=== PATIENT | male | born 1945 | race Caucasian/White ===

== ENCOUNTER 2018-11-03 07:23 | Observation (INO) | payer MEDICARE ==
[2018-11-02 09:51] LABS: BASOPHILS # (AUTO) 0.1 (0.0-0.1); EOSINOPHILS # (AUTO) 0.2 (0.0-0.4); EOSINOPHILS % 2.9 % (0.0-6.0); HEMATOCRIT 45.2 % (38.2-49.6); HEMOGLOBIN 15.4 g/dL (14.0-18.0); LYMPHOCYTES # (AUTO) 1.1 (1.0-3.2); LYMPHOCYTES % 21.6 % (18.0-39.1); MEAN CORPUSCULAR HGB CONC 34.1 g/dL (31-35); MEAN CORPUSCULAR VOLUME 91.1 fL (81-99); MONOCYTES # (AUTO) 0.5 (0.2-0.8); MONOCYTES % 9.8 % (4.4-11.3); NEUTROPHILS # (AUTO) 3.2 (2.1-6.9); NEUTROPHILS % 62.7 % (38.7-80.0); PLATELET COUNT 214 x10e3/uL (140-360); RED BLOOD COUNT 4.96 x10e6/uL (4.3-5.7); RED CELL DISTRIBUTION WIDTH 12.2 % (11.7-14.4)
[2018-11-02 09:58] LABS: ANION GAP 13.3 mmol/L (8-16); BLOOD UREA NITROGEN 21 mg/dL (7-26); BUN/CREATININE RATIO 24 (6-25); CALCIUM 9.3 mg/dL (8.4-10.2); CARBON DIOXIDE 26 mmol/L (22-29); CHLORIDE 105 mmol/L (98-107); CREATININE, SERUM 0.88 mg/dL (0.72-1.25); EST GLOMERULAR FILTRATION RATE > 60 ML/MIN (60-); GLUCOSE 87 mg/dL (74-118); POTASSIUM 4.3 mmol/L (3.5-5.1); SODIUM 140 mmol/L (136-145)
[2018-11-02 09:59] LABS: INR 0.93
[2018-11-02 10:00] LABS: PARTIAL THROMBOPLASTIN TIME 27.8 seconds (23.8-35.5)
--- NOTE | 2018-11-02 10:37 | Diagnostic Imaging Report ---
EXAMINATION: CHEST 2 VIEWS INDICATION: Preoperative. COMPARISON: None. FINDINGS: TUBES and LINES: None. LUNGS: The lungs are hyperinflated. No focal consolidation or pulmonary edema. The right lung apex is partially excluded from the [id number]. Biapical pleural-parenchymal opacity, suggestive of prior granulomatous disease. PLEURA: No pleural effusion or pneumothorax. HEART AND MEDIASTINUM: The cardiomediastinal silhouette is unremarkable. BONES AND SOFT TISSUES: No acute osseous abnormality. UPPER ABDOMEN: No free air under the diaphragm. IMPRESSION: Hyperinflated lungs, which may represent emphysema. No acute radiographic abnormality. Signed by: Sonal Martinez MD on 11/02/2018 10:34 AM
[~2018-11-03] VITALS: Ht 193 cm; Wt 80.4 kg
[~2018-11-03 07:23] MED LIST: BACITRACIN 50,000 UNIT VIAL ONE; BUPIVACAINE 0.5%/EPI 30 ML SDV INJ ONE; CHONDROITIN PO; GLUCOSAMINE1000 MG PO; IBUPROFEN 600 MG; THROMBIN FOR SOLN 5,000 UNIT VIAL ONE
--- OUTSIDE RECORDS SUMMARY | 2018-11-03 07:28 | XMS REPORT ---
Author Author [facility] Address Unknown Phone Unavailable Care Team Providers Care Inventory Control Supervisor Name Role Phone NUNO CARLOS Unavailable Unavailable Problems This patient has no known problems. Allergies, Adverse Reactions, Alerts This patient has no known allergies or adverse reactions. Medications This patient has no known medications. Results Test Description Test Time Test Comments Text Results Atomic Results Result Comments CHEST 2 VIEWS 2018-11-02 10:31:00 [place] [address] Patient Name: KENNY CHILEL MR #: [id number] : 1945 Age/Sex: 73/M Req #: [id number] [facility] Physician: Ordered by: NUNO CARLOS MD Report #: [id number] Location: OR Room/Bed: Procedure: [id number] DX/CHEST 2 VIEWS Exam Date: 11/02/18 Exam Time: 926 REPORT STATUS: Signed EXAMINATION: CHEST 2 VIEWS INDICATION: Preoperative. COMPARISON: None. FINDINGS: TUBES and LINES: None. LUNGS: The lungs are hyperinflated. No focal consolidation or pulmonary edema. The right lung apex is partially excluded from the [id number]-bq-[id number]. Biapical pleural-parenchymal opacity, suggestive of prior granulomatous disease. PLEURA: No pleural effusion or pneumothorax. HEART AND MEDIASTINUM: The cardiomediastinal silhouette is unremarkable. BONES AND SOFT TISSUES: No acute osseous abnormality. UPPER ABDOMEN: No free air under the diaphragm. IMPRESSION: Hyperinflated lungs, which may represent emphysema. No acute radiographic abnormality. Signed by: Nisa Martinez MD on 11/02/2018 10:34 AM Dictated By: NISA MARTINEZ MD 1034 Transcribed By: TAMAR on 11/02/18 1034 COPY TO: NUNO CARLOS MD
[2018-11-03] MEDS ORDERED: IBUPROFEN 800MG/ 250ML 250 ML IV ONE (07:30)
[2018-11-03] MEDS ORDERED: ACETAMINOPHEN 1000 MG/100 ML 100 ML IV ONE (07:30)
[2018-11-03] MEDS ORDERED: LIDOCAINE HCL (LTA) 4 ML SOLN ONE (07:30)
[2018-11-03] MEDS ORDERED: CEFAZOLIN SOD 1 GM/NS 50ML 100 ML IV ONE (07:51)
[2018-11-03] MEDS ORDERED: ONDANSETRON HCL INJ 2MG/ML 2ML 2 MG/ML VIAL IV PRN (10:45)
[2018-11-03] MEDS ORDERED: MORPHINE SULFATE 5 MG/ML VIAL IM PRN (10:45)
[2018-11-03] MEDS ORDERED: ACETAMINOPHEN 325 MG TAB PO PRN (10:45)
[2018-11-03] MEDS ORDERED: HYDROMORPHONE 2MG/ML 2 MG/ML ML IV PRN (10:45)
[2018-11-03] MEDS ORDERED: PROMETHAZINE HCL (IM) 25 MG/ML VIAL IM PRN (10:45)
[2018-11-03] MEDS ORDERED: ZOLPIDEM TARTRATE 5 MG TAB PO PRN (10:45)
[2018-11-03] MEDS ORDERED: OXYCODONE/ACETAMINOPHEN 5-325 1 EACH TABLET PO PRN (10:45)
[2018-11-03] MEDS ORDERED: CARISOPRODOL 350 MG TAB PO PRN (10:45)
[2018-11-03] MEDS ORDERED: MAGNESIUM/ALUMINUM/SIMETHICONE 30 ML UDC PO PRN (10:45)
[2018-11-03] MEDS ORDERED: FENTANYL CITRATE/PF 100MCG/2 ML INJ ONE ×2 (11:27→18:40)
--- NOTE | 2018-11-03 11:40 | Operative Report ---
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 POSTOPERATIVE DIAGNOSIS: C5-6 spondylosis and spinal stenosis with radiculopathy and with dysphagia due to large anterior osteophyte, M50.122. PROCEDURES: 1. C5-6 anterior cervical diskectomy and resection of large anterior osteophyte and allograft fusion, 32729. 2. Preparation of MTF corticocancellous allograft, 52124. 3. C5-6 anterior arthrodesis with Synthes ZPN plate, 65635. ANESTHESIA: General. INDICATIONS: The patient is a 73-year-old man, who presents with severe cervical spinal stenosis at C5-6 due to cervical spondylosis. In addition, he has a very large anterior bony osteophyte at C5-6, which compresses the esophagus and produces dysphagia. The patient was taken to the operating room for anterior cervical decompression and fusion and resection of the anterior osteophyte in the process. PROCEDURE IN DETAIL: After induction of general anesthesia, the patient was placed on the operating table in a supine position. The right side of neck was prepped and draped in sterile fashion. The fluoroscopic C-arm was positioned in cross-table lateral orientation. A transverse incision was created on the right side of neck superimposed on the C5-6 disk space as determined by fluoroscopy. The platysma was divided in line with the incision. A subplatysmal dissection was carried out and avascular plane of dissection was developed medial to the sternocleidomastoid muscle and was followed medial to the carotid sheath to the anterior border of the cervical spine, the deep cervical fascia was opened, the esophagus was retracted to the left, the very large anterior osteophyte came into view primarily centered overlying the C5 and C6 vertebral bodies, but extending all the way to the C4 vertebral body. The anterior longitudinal ligament was resected. Large portions of the osteophyte were first resected with the [place] rongeur. The operating microscope was brought in. A high-speed drill equipped with a 5 mm cutting bur was used to drill the bony osteophyte over the vertebral bodies of C6, C5, and C4. However, a shell of bone was left overlying the C4-5 disk space in order to avoid having to fuse that disk space as well. Attention was then directed to the C5-6 disk space. [place] posts were inserted into C5 and C6 vertebral body and the [place] distractor was used to distract the degenerated disk space. The contents of the disks were evacuated with curettes and pituitary rongeurs. A 5 mm cutting bur was used to simultaneously drill the inferior and superior endplates until the disk space height was re-established. The posterior osteophytes at this level were then meticulously drilled with a 2 mm cutting bur on a high-speed drill until they were completely removed. The posterior annulus of the disk, chronically herniated disk material, and the posterior longitudinal ligament were resected layer by layer until the dura was fully exposed and decompressed and medial aspects of the uncinate processes were resected bilaterally to further expose and decompress the origins of the corresponding C6 nerve roots. After satisfactory decompression had been achieved, the endplates were prepared for fusion. The disk space was sized and found to be 9 mm in height. A piece of MTF corticocancellous allograft measuring 9 mm in thickness was selected and prepared in saline and loaded onto a Synthes ZPN plate. The construct was then inserted into the C5-6 disk space under distraction and fluoroscopic guidance. It was tamped in place until the anterior margin of the plate was flushed with the anterior margin of the vertebral bodies. The plate was then screwed to the endplates of C5 and C6 with two pairs of 16 mm screws, all four screws were locked and excellent construct was obtained. The wound was copiously irrigated with bacitracin solution. Meticulous hemostasis was secured. Retractor was removed. The platysma was closed with 3-0 Vicryl sutures. The skin was closed with 4-0 Monocryl sutures in subcuticular fashion. Steri-Strips and dressing were applied. The patient was awakened, extubated, and taken to postanesthesia care unit in stable condition. No intraoperative complications were encountered. ESTIMATED BLOOD LOSS: 20 mL. Ari Huang MD PP/DORINA /[id number]
[2018-11-03] MEDS ORDERED: MORPHINE SULFATE INJ 4 MG/ML INJ 1ML IM PRN (12:00)
[2018-11-03 12:06] VITALS: BP 167/92
[2018-11-03] MEDS: LACTATED RINGER'S 1,000 ML IV SCH ×2 (12:15→21:09)
[2018-11-03 13:26] VITALS: BP 167/92
[2018-11-03 13:41] VITALS: BP 167/92
[2018-11-03] MEDS: CEFAZOLIN SOD 1 GM/NS 50ML 50 ML IV SCH ×2 (14:26→21:09)
[2018-11-03 15:21] VITALS: BP 138/81
[2018-11-03] MEDS ORDERED: LIDOCAINE HCL 2% JELLY 5 ML TUBE ONE (16:04)
[2018-11-03] MEDS ORDERED: GLYCOPYRROLATE INJ 1MG/ 5 ML SYR ONE (16:04)
[2018-11-03] MEDS ORDERED: LIDOCAINE HCL 2% LOCAL INJ 5 ML SDV VIAL INJ ONE (16:04)
[2018-11-03] MEDS ORDERED: ROCURONIUM BROMIDE 10 MG/ML 5ML VIAL ONE (16:04)
[2018-11-03] MEDS ORDERED: DEXAMETHASONE SOD PHOS INJ 4 MG/ML VIAL ONE (16:04)
[2018-11-03] MEDS ORDERED: NEOSTIGMINE 5 MG/5ML SYR ONE (16:04)
[2018-11-03] MEDS ORDERED: SEVOFLURANE INHAL SOLN 250 ML PEN BTL ONE (16:04)
[2018-11-03] MEDS ORDERED: PROPOFOL IV EMULSION 10 MG/ML 20 ML VIAL ONE (16:04)
[2018-11-03] MEDS ORDERED: ONDANSETRON HCL INJ 2MG/ML 2ML 2 MG/ML VIAL ONE (16:04)
[2018-11-03] MEDS ORDERED: GLUCOSAMINE SULFATE 1500 MG PO SCH (17:00)
[2018-11-03] MEDS ORDERED: CHONDROITIN PO SCH (17:00)
[2018-11-03] MEDS ORDERED: MIDAZOLAM HCL 2 MG/2 ML VIAL ONE (18:40)
[2018-11-03 20:00] VITALS: BP 163/83
[2018-11-04] VITALS: BP 118/66
[2018-11-04 04:00] VITALS: BP 130/64
[2018-11-04] MEDS: LACTATED RINGER'S 1,000 ML IV SCH (05:06)
[2018-11-04] MEDS: CEFAZOLIN SOD 1 GM/NS 50ML 50 ML IV SCH (05:06)
--- NOTE | 2018-11-04 07:11 | NUR ---
REPORT GIVEN TO DAY NURSE. PATIENT IS RESTING COMFORTABLY IN BED. BED IS IN LOWEST POSITION AND CALL LIGHT IS WITHIN REACH.
--- NOTE | 2018-11-04 07:52 | Diagnostic Imaging Report ---
EXAM: Cervical spine radiographs-2 views INDICATION: Postoperative. COMPARISON: None FINDINGS: C1-C7 is visualized on the lateral view. There is mild anterolisthesis of C2 on C3 and C3 on C4. There are extensive multilevel cervical degenerative disc changes with joint space narrowing and bony osteophyte formation, most pronounced at C4-C5 and C5-C6. Extensive facet degenerative changes. There are postsurgical changes related to C5-C6 anterior fusion with plate and screw construct and intervertebral spacer placement. Hardware appears grossly intact. There is prevertebral soft tissue edema and air, consistent with recent surgery. IMPRESSION: Postsurgical findings status post C5-C6 fusion as above. Extensive degenerative changes of the cervical spine. Signed by: Dr. Emory Worley MD on 11/04/2018 7:49 AM
[2018-11-04] MEDS ORDERED: NORCO 7.5-3251 EACH PO (07:59)
[2018-11-04 08:13] VITALS: BP 131/75
[2018-11-04 08:23] VITALS: BP 131/75
--- NOTE | 2018-11-04 08:32 | NUR ---
Discharge instructions, follow up appointment with Dr Keith discussed, printed discharge instructions and post op surgical care education and instructions given to patient. Pt is AAOx4 and he verbalized all instructions given. Pt is waiting for his daughter at this time.
== END 2018-11-04 09:23 | disposition home or self-care (01) ==
LOC: OR 07:23 → PACU V 10:46 → IMCU 11:50
PROVIDERS: ADMIT Neurological Surgery; ATTEND Neurological Surgery
DX: M50.122 Cervical disc disorder at C5-C6 level with radiculopathy (principal); R13.10 Dysphagia, unspecified; Z01.810 Encounter for preprocedural cardiovascular examination; Z01.812 Encounter for preprocedural laboratory examination; Z01.811 Encounter for preprocedural respiratory examination
CPT/HCPCS: 20931; 22551; 22845; 36415; 71046; 72040; 80048; 85025; 85610; 85730; 86850; 86900; 88304; 88311; 93005; C1713 ×2; C9359; G0378 ×2; J0131; J0690 ×2; J1100; J2001 ×2; J2250; J2405; J2704; J3010; J3490; J7121 ×2; 77003

== ENCOUNTER → 2018-12-01 | Outpatient (CLI) | payer MEDICARE ==
[~2018-12-01] MED LIST changes: -BACITRACIN 50,000 UNIT VIAL ONE; -BUPIVACAINE 0.5%/EPI 30 ML SDV INJ ONE; +NORCO 7.5-3251 EACH PO; -THROMBIN FOR SOLN 5,000 UNIT VIAL ONE
--- NOTE | 2018-12-01 15:13 | Diagnostic Imaging Report ---
EXAM: Cervical spine radiographs-2 views INDICATION: Status post cervical spine fusion COMPARISON: None FINDINGS: 4 views of the cervical spine. There is mild anterolisthesis of C2 on C3 and C3 on C4. There are extensive multilevel cervical degenerative disc changes with joint space narrowing and bony osteophyte formation, most pronounced at C4-C5 and C5-C6. Extensive facet degenerative changes. Unchanged alignment status post C5-C6 anterior fusion with plate and screw construct and intervertebral spacer placement. Hardware appears grossly intact. Prevertebral soft tissue thickening and subcutaneous emphysema have decreased compared to the prior radiograph of 11/04/2018. IMPRESSION: Unchanged alignment status post C5-6 anterior fusion with interval decrease in postoperative prevertebral soft tissue swelling and soft tissue emphysema. Signed by: Sonal Martinez MD on 12/01/2018 3:07 PM
== END ==
LOC: RAD 13:50
PROVIDERS: ATTEND Neurological Surgery
DX: M50.20 Other cervical disc displacement, unspecified cervical region (principal); M43.22 Fusion of spine, cervical region
CPT/HCPCS: 72050

== ENCOUNTER 2021-09-16 11:04 | Observation (INO) | payer MEDICARE ==
[2021-09-12 14:47] LABS: BASOPHILS # (AUTO) 0.1 (0.0-0.1); BASOPHILS % 1.9 % (0.0-1.0); EOSINOPHILS # (AUTO) 0.2 (0.0-0.4); EOSINOPHILS % 4.5 % (0.0-6.0); HEMATOCRIT 45.8 % (38.2-49.6); HEMOGLOBIN 15.4 g/dL (14.0-18.0); LYMPHOCYTES # (AUTO) 1.6 (1.0-3.2); LYMPHOCYTES % 29.9 % (18.0-39.1); MEAN CORPUSCULAR HEMOGLOBIN 31.1 pg (28-32); MEAN CORPUSCULAR HGB CONC 33.6 g/dL (31-35); MEAN CORPUSCULAR VOLUME 92.5 fL (81-99); MONOCYTES # (AUTO) 0.5 (0.2-0.8); MONOCYTES % 9.5 % (4.4-11.3); NEUTROPHILS # (AUTO) 2.8 (2.1-6.9); NEUTROPHILS % 53.8 % (38.7-80.0); PLATELET COUNT 245 x10e3/uL (140-360); RED BLOOD COUNT 4.95 x10e6/uL (4.3-5.7); RED CELL DISTRIBUTION WIDTH 12.2 % (11.7-14.4)
[2021-09-12 14:55] LABS: CLARITY,URINE CLEAR (CLEAR); COLOR,URINE YELLOW (YELLOW); LEUKOCYTE ESTERASE ,URINE NEGATIVE (NEGATIVE); NITRITE,URINE NEGATIVE (NEGATIVE)
[2021-09-12 14:56] LABS: KETONES,URINE NEGATIVE (NEGATIVE); PROTEIN,URINE DIPSTICK NEGATIVE (NEGATIVE); URINE UROBILINOGEN 0.2 mg/dL (0.2 - 1)
[2021-09-12 15:09] LABS: ANION GAP 12.4 mmol/L (8-16); CALCIUM 9.1 mg/dL (8.4-10.2); CREATININE, SERUM 0.92 mg/dL (0.72-1.25); POTASSIUM 4.4 mmol/L (3.5-5.1)
[~2021-09-16] VITALS: Ht 185.4 cm; Wt 81.6 kg
[~2021-09-16 11:04] MED LIST changes: +ROPIVACAINE 246.25 MG, EPINEPHRINE HCL 1:1000 1ML 0.5 MG, CLONIDINE HCL 0.08 MG, KETORO... INJ ONE; +ULTRAM 50MG50 MG PO
[2021-09-16] MEDS ORDERED: DEXAMETHASONE SOD PHOS 10 MG/1 ML VIAL ONE (11:28)
[2021-09-16] MEDS ORDERED: CELECOXIB 200 MG CAP ONE (11:28)
[2021-09-16] MEDS ORDERED: GABAPENTIN 300 MG CAP ONE (11:29)
[2021-09-16] MEDS ORDERED: ROPIVACAINE 0.5% 5 MG/ML 30 ML SDV ONE (11:45)
[2021-09-16] MEDS ORDERED: SODIUM CHLORIDE 0.9% 500ML 500 ML ONE (12:13)
[2021-09-16] MEDS ORDERED: Vancomycin IV 1,000 MG ONE (12:13)
[2021-09-16] MEDS ORDERED: TRANEXAMIC ACID 20 ML ONE (12:13)
[2021-09-16] MEDS ORDERED: LIDOCAINE HCL 2% LOCAL INJ 5 ML SDV VIAL INJ ONE (13:04)
[2021-09-16] MEDS ORDERED: SEVOFLURANE INHAL SOLN 250 ML PEN BTL ONE (13:04)
[2021-09-16] MEDS ORDERED: PROPOFOL IV EMULSION 10 MG/ML 20 ML VIAL ONE (13:04)
[2021-09-16] MEDS ORDERED: POVIDONE IODINE 0.05% 0.05 % ML PO ONE (13:04)
[2021-09-16] MEDS ORDERED: ONDANSETRON HCL INJ 2MG/ML 2ML 2 MG/ML VIAL ONE (13:04)
[2021-09-16] MEDS ORDERED: FENTANYL CITRATE/PF 100MCG/2 ML INJ ONE ×3 (13:11→17:16)
[2021-09-16] MEDS ORDERED: MIDAZOLAM HCL 2 MG/2 ML VIAL ONE (13:11)
[2021-09-16] MEDS ORDERED: ACETAMINOPHEN 1000 MG/100 ML 100 ML IV ONE (14:30)
[2021-09-16] MEDS ORDERED: ONDANSETRON HCL INJ 2MG/ML 2ML 2 MG/ML VIAL IV PRN (17:15)
[2021-09-16] MEDS ORDERED: HYDROMORPHONE 0.2MG/ML-SOD CHL 30ML PCA SYRINGE IV PRN (17:15)
[2021-09-16] MEDS ORDERED: NALOXONE HCL INJ 0.4 MG/ML AMP IV PRN (17:15)
[2021-09-16] MEDS ORDERED: ACETAMINOPHEN 1000 MG/100 ML IV PRN (18:00)
[2021-09-16 18:33] VITALS: BP 164/99
[2021-09-16 20:00] VITALS: BP 149/89
[2021-09-16] MEDS: SODIUM CHLORIDE 0.9% 1000ML 1,000 ML IV SCH (21:03)
[2021-09-16 22:02] VITALS: BP 164/99
[2021-09-17] VITALS: BP 138/84
[2021-09-17] MEDS: SODIUM CHLORIDE 0.9% 1000ML 1,000 ML IV SCH (03:15)
[2021-09-17 04:00] VITALS: BP 121/69
[2021-09-17 05:35] LABS: HEMATOCRIT 38.6 % (38.2-49.6); HEMOGLOBIN 12.8 g/dL (14.0-18.0)
[2021-09-17] MEDS ORDERED: RIVAROXABAN 10 MG TABLET PO SCH (08:00)
[2021-09-17 08:18] VITALS: BP 132/74
[2021-09-17 13:04] VITALS: BP 124/61
[2021-09-17] MEDS ORDERED: ONDANSETRON HCL 4 MG ORAL DISINTEGRATING TAB PO PRN (15:15)
[2021-09-17 16:40] VITALS: BP 121/68
== END 2021-09-17 17:05 | disposition home or self-care (01) ==
LOC: OR 11:04 → MED/SURG 17:29
PROVIDERS: ADMIT Specialist; ATTEND Specialist
DX: M17.11 Unilateral primary osteoarthritis, right knee (principal); Z01.812 Encounter for preprocedural laboratory examination; Z01.810 Encounter for preprocedural cardiovascular examination; Z20.822 Contact with and (suspected) exposure to COVID-19; I10 Essential (primary) hypertension
CPT/HCPCS: 27447; 36415 ×2; 71046; 73560; 80048; 81003; 85014; 85018; 85025; 86850; 86900; 86920; 93005; 97110; 97116 ×2; 97161; C1713; G0378 ×2; J0131; J0171; J0690 ×2; J1100; J1885; J2001; J2405; J2704; J2795; J3010; J3370; J7030 ×2; J7040; U0002; J2250

== ENCOUNTER → 2023-02-09 | Day surgery (SDC) | payer MEDICARE ==
[2023-02-02 14:41] LABS: BASOPHILS # (AUTO) 0.1 (0.0-0.1); BASOPHILS % 1.2 % (0.0-1.0); EOSINOPHILS # (AUTO) 0.1 (0.0-0.4); LYMPHOCYTES # (AUTO) 1.6 (1.0-3.2); LYMPHOCYTES % 22.8 % (18.0-39.1); MEAN CORPUSCULAR HEMOGLOBIN 31.2 pg (28-32); MEAN CORPUSCULAR HGB CONC 35.7 g/dL (31-35); MEAN CORPUSCULAR VOLUME 87.3 fL (81-99); MONOCYTES # (AUTO) 0.7 (0.2-0.8); MONOCYTES % 9.7 % (4.4-11.3); NEUTROPHILS # (AUTO) 4.4 (2.1-6.9); NEUTROPHILS % 63.9 % (38.7-80.0); PLATELET COUNT 241 x10e3/uL (140-360); RED BLOOD COUNT 4.81 x10e6/uL (4.3-5.7); RED CELL DISTRIBUTION WIDTH 12.3 % (11.7-14.4)
[~2023-02-09] MED LIST changes: +ACETAMINOPHEN-1 EAC4 PO; +BUPIVACAINE HCL 0.5% INJ 30 ML VIAL INJ ONE; +DEXAMETHASONE SOD PHOS INJ 4 MG/ML SDV ONE; +EPHEDRINE SULFATE INJ 50 MG/ML VIAL ONE; +FENTANYL CITRATE/PF 100MCG/2 ML INJ ONE; +LACTATED RINGER'S 1,000 ML ONE; +LIDOCAINE HCL 2% LOCAL INJ 5 ML SDV VIAL INJ ONE; +LOSARTAN POTASS25 MG PO; +MOTRIN200 MG PO; +MUPIROCIN 2% OINT 22 GM TUBE ONE; +ONDANSETRON HCL INJ 2MG/ML 2ML 2 MG/ML VIAL ONE; +PHENYLEPHRINE HCL 1% 10 MG/ML VIAL ONE; +PROPOFOL IV EMULSION 10 MG/ML 20 ML VIAL ONE; -ROPIVACAINE 246.25 MG, EPINEPHRINE HCL 1:1000 1ML 0.5 MG, CLONIDINE HCL 0.08 MG, KETORO... INJ ONE; +SEVOFLURANE INHAL SOLN 250 ML PEN BTL ONE
[2023-02-09 09:21] VITALS: TEMP 98.2
[2023-02-09 10:05] VITALS: BP 126/86; RESP 18; O2SAT 96
== END | disposition home or self-care (01) ==
LOC: OR 05:40
PROVIDERS: ATTEND Plastic Surgery
DX: M72.0 Palmar fascial fibromatosis [Dupuytren] (principal); I10 Essential (primary) hypertension; Z01.810 Encounter for preprocedural cardiovascular examination; Z01.812 Encounter for preprocedural laboratory examination; Z01.818 Encounter for other preprocedural examination; Z79.899 Other long term (current) drug therapy; Z79.1 Long term (current) use of non-steroidal anti-inflammatories (NSAID); Z87.891 Personal history of nicotine dependence
CPT/HCPCS: 26123; 26125; 36415; 71046; 85025; 88304; 93005; J0690; J1100; J2001; J2371; J2405; J2704; J3010; J7121